=== PATIENT | female | born 1955 | race Caucasian/White ===

== ENCOUNTER 2024-05-11 07:41 | Day surgery (SDC) | payer OTHER ==
[~2024-05-11] VITALS: Ht 167.6 cm; Wt 78.1 kg
[~2024-05-11 07:41] MED LIST: ALENDRONATE SOD70 MG PO; Lactated Ringer's 1,000 ML IV ONE; OMEP20ER PO; propofoL 50 ML IV ONE
[2024-05-11] MEDS ORDERED: Lactated Ringer's 1,000 ML IV ONE (09:21)
== END 2024-05-11 10:12 | disposition home or self-care (01) ==
LOC: ORSCSDS 07:41
PROVIDERS: Surgery
PROC: 0DBL8ZX Excision of Transverse Colon, Via Natural or Artificial Opening Endoscopic, Diagnostic (ICD-10-PCS; principal; 2024-05-11 09:30)
PROC: 0DBH8ZX Excision of Cecum, Via Natural or Artificial Opening Endoscopic, Diagnostic (ICD-10-PCS; principal; 2024-05-11 09:30)
DX: Z12.11 Encounter for screening for malignant neoplasm of colon (principal); Z80.0 Family history of malignant neoplasm of digestive organs; D12.0 Benign neoplasm of cecum; K63.5 Polyp of colon; K64.1 Second degree hemorrhoids; K21.9 Gastro-esophageal reflux disease without esophagitis; Z79.899 Other long term (current) drug therapy; Z87.891 Personal history of nicotine dependence
CPT/HCPCS: 88305; J2704; J7120